=== PATIENT | female | born 1970 | race Caucasian/White ===

== ENCOUNTER 2016-06-15 15:02 | Outpatient (CLI) ==
[2013-12-30 18:40] VITALS: BMI 31.1
[2016-06-15 15:16] LABS: BASOPHILS # (AUTO) 0.1 K/uL (0-0.2); EOSINOPHILS # (AUTO) 0.7 K/ul (0.0-0.7); EOSINOPHILS % (AUTO) 6.3 % (0.0-7.0); HEMATOCRIT 45.6 % (37.0-47.0); HEMOGLOBIN 14.9 g/dl (12.0-16.0); IMMATURE GRANULOCYTE % (AUTO) 0.3 % (0.0-5.0); LYMPHOCYTES # (AUTO) 3.2 K/uL (0.60-3.4); LYMPHOCYTES % (AUTO) 31.2 (10.0-50.0); MEAN CORPUSCULAR HEMOGLOBIN 30.4 pg (27.0-31.0); MEAN CORPUSCULAR HGB CONC 32.7 (31.8-35.4); MEAN CORPUSCULAR VOLUME 93.1 fl (81.0-99.0); MONOCYTES # (AUTO) 0.8 K/uL (0.4-2.0); MONOCYTES % (AUTO) 8.1 (0-10); NEUTROPHILS # (AUTO) 5.5 K/ul (2.0-6.9); NEUTROPHILS % (AUTO) 53.1; PLATELET COUNT 281 10^3/uL (140-440); WHITE BLOOD COUNT 10.38 K/ul (4.6-10.2)
[2016-06-15 15:59] LABS: ALBUMIN 4.3 g/dL (3.4-5.0); ALBUMIN/GLOBULIN RATIO 1.34; ANION GAP 15.3; BILIRUBIN,TOTAL 0.37 mg/dL (0.00-1.20); BUN/CREATININE RATIO 14.08; CALCIUM 8.1 mg/dL (8.2-10.2); CHOL/HDL RATIO 3.3 (4.5-5.5); CREATININE 0.71 mg/dL (0.60-1.30); POTASSIUM 4.3 mmol/L (3.5-5.10); TOTAL PROTEIN 7.5 g/dL (6.4-8.2)
== END 2016-06-15 15:03 | disposition home or self-care (01) ==
LOC: LAB 15:02
PROVIDERS: ATTEND Nurse Practitioner Family
DX: M50.90 Cervical disc disorder, unspecified, unspecified cervical region (principal); M50.20 Other cervical disc displacement, unspecified cervical region; E78.1 Pure hyperglyceridemia; E78.5 Hyperlipidemia, unspecified
CPT/HCPCS: 36415; 80053; 80061; 84439; 84443; 85025

== ENCOUNTER 2016-08-29 08:30 | Emergency (ER) ==
[2016-08-29 08:40] VITALS: BP 125/89; TEMP 96.9; BMI 23.6
[2016-08-29] MEDS ORDERED: TORADOL IM STA (08:51)
--- NOTE | 2016-08-29 08:55 | ED.PDOC ---
General ED Provider: Dr. KELLY GARZA Chief Complaint: Back Pain Stated Complaint: Been hurting in the rt lower back, no injury. Time Seen by Physician: 08:53 Mode of Arrival: Walk-In Information Source: Patient Primary Care Provider: PAULA CERON Nursing and Triage Documentation Reviewed and Agree: Yes Musculoskeletal Complaint Exam - Back Pain Complaint/Exam Mechanism of Injury: Reports: No known trauma Symptoms Are: Still present Timing: Constant Episodes Lasting: Hours Initial Severity: Moderate Current Severity: Moderate Location: Reports: Discrete Character: Reports: Aching, Throbbing Aggravating: Reports: Movements, Lifting, Bending Alleviating: Reports: None Associated Signs and Symptoms: Denies: Swelling, Redness, Bruising, Fever, Weakness, Numbness, Tingling, Abdominal pain, Flank pain, Bladder incontinence, Bowel incontinence, Weight loss, Pain with weight bearing TAD Risk Factors: Reports: None AAA Risk Factors: Reports: None Cauda Equina Risk Factors: Reports: None Epidural Abcess Risk Factors: Reports: None Related Surgical History: Reports: None Focal Tenderness: Yes Paraspinal Muscle Tenderness: Yes Paraspinal Muscle Spasm: Yes Scoliosis: No Lordosis: No Kyphosis: No SLR Test: Left Positive Focal Weakness: Present: None Focal Sensory Loss: Present: None Gait: Present: Normal Differential Diagnoses: Arthritis, Strain Review of Systems - Review Of Systems Constitutional: Reports: Malaise, Weakness Eyes: Reports: No symptoms Ears, Nose, Mouth, Throat: Reports: No symptoms Respiratory: Reports: No symptoms Cardiac: Reports: No symptoms GI: Reports: No symptoms : Reports: No symptoms Musculoskeletal: Reports: Joint pain Skin: Reports: No symptoms Neurological: Reports: No symptoms Endocrine: Reports: No symptoms Hematologic/Lymphatic: Reports: No symptoms All Other Systems: Reviewed and Negative Past Medical History - Past Medical History Previously Healthy: Yes Endocrine: Reports: None Cardiovascular: Reports: None Respiratory: Reports: COPD Hematological: Reports: None Gastrointestinal: Reports: None Genitourinary: Reports: None Neuro/Psych: Reports: None Musculoskeletal: Reports: Back Pain Cancer: Reports: None Last Menstrual Period: post menopausal. - Surgical History General Surgical History: Reports: Tubal ligation, Appendectomy - Family History Family History: Reports: None - Social History Smoking Status: Current every day smoker, Light tobacco smoker Smoking Cessation Counseling Time: > 3 min - 10 min Hx Substance Use: No Alcohol Screening: Occasionally - Immunizations Tetanus Shot up to Date: No (unknown) Physical Exam - Physical Exam Appearance: Well-appearing Pain Distress: Moderate Eyes: JANES, EOMI, Conjunctiva clear ENT: Ears normal, Nose normal, Oropharynx normal Respiratory: Airway patent, Breath sounds clear, Breath sounds equal, Respirations nonlabored Cardiovascular: RRR, Pulses normal, No rub, No murmur GI/: Soft, Nontender, No masses, Bowel sounds normal, No Organomegaly Musculoskeletal: Normal strength, ROM intact, No edema, No calf tenderness Skin: Warm, Dry, Normal color Neurological: Sensation intact, Motor intact, Reflexes intact, Cranial nerves intact, Alert, Oriented Psychiatric: Affect appropriate, Mood appropriate Interpretation - Radiology Interpretation Radiology Interpretation By: ED Physician Radiology Results: Negative Critical Care Note - Critical Care Note Total Time (mins): 0 Course - Course Orders, Labs, Meds: Orders Category Date Time Status Ketorolac Tromethamine [Toradol] MEDS 08/29/16 08:51 Discontinued 60 mg IM ONCE STA LUMBAR SPINE, 2 OR 3 VIEWS Stat RADS 08/29/16 08:51 Completed Medications Discontinued Medications Generic Name Dose Route Start Last Admin Trade Name Freq PRN Reason Stop Dose Admin Ketorolac Tromethamine 60 mg 08/29/16 08:51 08/29/16 08:58 Toradol IM 08/29/16 08:52 60 mg ONCE STA Administration Vital Signs: Temp Pulse Resp BP Pulse Ox 08/29/16 08:30 96.9 F L 90 24 125/89 98 Departure - Departure Time of Disposition: 09:35 Disposition: HOME SELF-CARE Discharge Problem: Backache Sprain of low back Qualifiers: Encounter type: initial encounter Qualifier Code: (S33.9XXA) Sprain of unspecified parts of lumbar spine and pelvis, initial encounter Instructions: Arthritis (ED) Condition: Stable Pt referred to PMD for follow-up: Yes Additional Instructions: REST HOT PACK ADVISED TO QUITE SMOKING. inez+ vit d po bid Prescriptions: Cyclobenzaprine HCl [Flexeril] 5 mg PO BID #14 tablet Hydrocodone/Acetaminophen [Baldwin 5-325 Tablet] 1 tab PO TID PRN #12 tablet PRN Reason: PAIN Allergies/Adverse Reactions: Allergies Latex, Natural Rubber Adverse Reaction (Verified 08/29/16 08:40) Penicillins Adverse Reaction (Verified 08/29/16 08:40) Home Medications: Ambulatory Orders Cyclobenzaprine HCl [Flexeril] 5 mg PO BID #14 tablet 08/29/16 Hydrocodone/Acetaminophen [Baldwin 5-325 Tablet] 1 tab PO TID PRN #12 tablet 08/29 Disposition Discussed With: Patient
--- NOTE | 2016-08-29 09:29 | DI ---
EXAM: Views of the lumbar spine HISTORY: Right lower back pain TECHNIQUE: AP lateral, coned-down lateral views of the lumbar spine were obtained. FINDINGS: There is straightening of the lumbar spine. There is no evidence of acute compression fr acture. There is no pars defect. There is mild degenerative disc disease seen in the upper and mid lumbar spine. There is facet joint arthropathy seen at the L5-S1 level. IMPRESSION: No acute fractures are seen within the lumbar spine. Mild degenerative disc disease of the lumbar spine. Facet joint arthropathy seen at L5-S1.
== END 2016-08-29 09:41 | disposition home or self-care (01) ==
LOC: ED 08:30
DX: S33.9XXA Sprain of unspecified parts of lumbar spine and pelvis, initial encounter (principal); F17.210 Nicotine dependence, cigarettes, uncomplicated
CPT/HCPCS: 96372; 99282

== ENCOUNTER 2017-04-09 07:57 | Outpatient (CLI) | END 2017-04-09 07:58 | disposition short-term general hospital (02) | LOC: AMBL 07:57 | PROVIDERS: ATTEND Family Medicine | DX: R07.9 Chest pain, unspecified (principal); R06.02 Shortness of breath; R05 Cough; R06.2 Wheezing ==

== ENCOUNTER 2017-05-04 16:18 | Outpatient (CLI) | END 2017-05-04 16:19 | disposition home or self-care (01) | LOC: LAB 16:18 | PROVIDERS: ATTEND Nurse Practitioner Family | DX: E87.6 Hypokalemia (principal) | CPT/HCPCS: 36415; 84132 ==

== ENCOUNTER 2017-12-15 10:26 | Outpatient (CLI) | END 2017-12-15 10:27 | disposition home or self-care (01) | LOC: LAB 10:26 | PROVIDERS: ATTEND Nurse Practitioner Family | DX: G89.29 Other chronic pain (principal); E87.6 Hypokalemia; E55.9 Vitamin D deficiency, unspecified | CPT/HCPCS: 36415; 80053; 82306; 85025 ==

== ENCOUNTER 2017-12-20 08:02 | Outpatient (CLI) | END 2017-12-20 08:03 | disposition home or self-care (01) | LOC: LAB 08:02 | PROVIDERS: ATTEND Nurse Practitioner Family | DX: E83.51 Hypocalcemia (principal) | CPT/HCPCS: 36415; 82306; 83735; 83970; 87389 ==

== ENCOUNTER 2018-09-01 10:47 | Outpatient (CLI) | END 2018-09-01 10:48 | disposition home or self-care (01) | LOC: LAB 10:47 | PROVIDERS: ATTEND Nurse Practitioner Family | DX: J44.9 Chronic obstructive pulmonary disease, unspecified (principal); M19.90 Unspecified osteoarthritis, unspecified site; M51.36 Other intervertebral disc degeneration, lumbar region; Z72.0 Tobacco use | CPT/HCPCS: 36415; 80053; 80061; 84443; 85025 ==

== ENCOUNTER 2018-09-05 16:28 | Outpatient (CLI) | END 2018-09-05 16:29 | disposition home or self-care (01) | LOC: RHC-LAB 16:28 | PROVIDERS: ATTEND Nurse Practitioner Family | DX: M54.5 Low back pain (principal) | CPT/HCPCS: 81001 ==

== ENCOUNTER 2018-09-08 10:28 | Emergency (ER) ==
[2018-09-08 10:42] VITALS: BP 135/82; TEMP 98.1; BMI 26.6
--- NOTE | 2018-09-08 11:44 | DI ---
EXAM: Two views of the chest. History: Cough. Comparison: Chest radiograph 10/28/2014 Findings: Heart size is normal. No focal consolidation. No appreciable pleural fluid and no pneumo thorax. No acute osseous abnormalities. Impression: No acute cardiopulmonary process
--- NOTE | 2018-09-08 12:06 | CT ---
EXAM: CT ABDOMEN AND PELVIS HISTORY: Bilateral flank pain TECHNIQUE: CT abdomen and pelvis without intravenous contrast. Images were reconstructed using 3 mm section thickness. Reformations were prepared. COMPARISON: 10/25/2013 FINDINGS: Diagnostic limitations may exist without including contrast enhanced images. Kidneys reveal no nep hrolithiasis or hydronephrosis. There is no perinephric fat stranding. Ureters are clear and the ur inary bladder is unremarkable. No focal hepatic or splenic lesions. Gallbladder is absent. Normal pancreas. Normal right adrenal gland. There is a stable 16 mm left adrenal nodule with indeterminate attenuation values on this une nhanced exam. This size stability would suggest a benign etiology. Minimal atherosclerotic disease. Stomach is within normal limits. No appendix is seen. No right lower quadrant inflammation. Odalis l gas pattern is within limits. Uterus is unremarkable. There is no ascites or inflammatory infiltr ation of the abdominal fat. Ventral abdominal wall is intact. Bones reveal arthropathy of the lower spine and sacroiliac joints. Lung bases are clear. There is no pneumoperitoneum. IMPRESSION: 1. Within limits of this unenhanced exam, the kidneys, ureters and urinary bladder appear normal. 2. Stable small left adrenal nodule since 2013. 3. No clear etiology for the patient's symptoms.
[2018-09-08] MEDS ORDERED: CALCIUM GLUCONATE 10% 1,000 MG in SODIUM CHLORIDE 100 ML IV STA (12:28)
--- NOTE | 2018-09-08 12:32 | ED.PDOC ---
General ED Provider: Dr. CIARA ESPANA Chief Complaint: Dizziness Stated Complaint: pt was sent from clinic for hypocalcemia and mild dizziness no motor sensory deficits noted . THE PT HAS HISTORY OF LOW P.T.H INDUCED HYPOCALCEMIA IN THE PAST. CALCIUM LEVELS ON NOVEMBER OF 2017 6.7 AND 7.0 . SHE IS NOT TAKING DIURETICS. Time Seen by Physician: 10:30 Mode of Arrival: Walk-In Information Source: Patient Exam Limitations: No limitations Primary Care Provider: PAULA CERON Nursing and Triage Documentation Reviewed and Agree: Yes Does patient meet sepsis criteria?: No If yes, has appropriate treatment been initiated?: No System Inflammatory Response Syndrome: Not Applicable Sepsis Protocol: For patient's 13 years and over: Temp is 96.8 and below OR 101 and greater Pulse >90 BPM Resp >20/minute Acutely Altered Mental Status Are patient's symptoms suggestive of a new infection, such as: -Pneumonia -Skin, Soft Tissue -Endocarditis -UTI -Bone, Joint Infection -Implantable Device -Acute Abdominal Infection -Wound Infection -Meningitis -Blood Stream Catheter Infection -Unknown Miscellaneous Complaint Exam - Complex/Multi-System Complaint/Exam Onset/Duration: 5 days ago was noted to have low calcium SENT TO ED TODAY Symptoms Are: Still present Initial Severity: Mild Current Severity: Mild Location of Pain: no pain Pain Radiates to: NO Character: N/A Aggravating: N/A Alleviating: N/A Associated Signs and Symptoms: Denies: Decreased responsiveness, Confusion, Agitation, Dizziness, Weakness, Syncope, Headache, Short of air, Cough, Wheezing , Hemoptysis, Chest pain, Palpitations, Edema, Nausea, Vomiting, Diarrhea, Abdominal pain, Back pain, Dysuria, Hematemesis, Melena, Decreased oral intake, Fever, Diaphoresis, Immunocompromised, Anticoagulation Therapy, Recent medication changes, Indwelling general medical practitioner, Prior MRSA, Prior VRE, Recent trauma, Remote trauma Respiratory Distress: None JVD Present: No Tachypnea Present: No Stridor Present: No Abdominal Findings: Present: Normal findings Glascow Coma Scale (see protocol): 15 Meningeal Signs Positive: No Focal Weakness: Present: None Focal Sensory Loss: Present: None Gait: Normal Babinski Sign: Negative Right, Negative Left Skin Findings: Present: Normal findings Joint Swelling Present: No In-Dwelling Device Present: No Differential Diagnosis: Metabolic Abnormality Quality Indicators for Cardiac Chest Pain: EKG in 10min. Quality Indicators for AMI: EKG in 10min. Review of Systems - Review Of Systems Constitutional: Reports: No symptoms Eyes: Reports: No symptoms Ears, Nose, Mouth, Throat: Reports: No symptoms Respiratory: Reports: No symptoms Cardiac: Reports: No symptoms GI: Reports: No symptoms : Reports: No symptoms Musculoskeletal: Reports: No symptoms Skin: Reports: No symptoms Neurological: Reports: Other (LIGHT HEADED NO DEDICITS OFFERED ) Endocrine: Reports: No symptoms Hematologic/Lymphatic: Reports: No symptoms All Other Systems: Reviewed and Negative Past Medical History - Past Medical History Previously Healthy: Yes (history of LOW PTH HYPOCALCEMIA ) Endocrine: Reports: None Cardiovascular: Reports: None Respiratory: Reports: COPD Hematological: Reports: None Gastrointestinal: Reports: None Genitourinary: Reports: None Neuro/Psych: Reports: None Musculoskeletal: Reports: Back Pain Cancer: Reports: None Last Menstrual Period: does not get them anymore - Surgical History General Surgical History: Reports: Tubal ligation, Appendectomy - Family History Family History: Reports: None - Social History Smoking Status: Current every day smoker Hx Substance Use: Yes (used to) Alcohol Screening: Occasionally - Immunizations Tetanus Shot up to Date: Yes Physical Exam - Physical Exam Appearance: Well-appearing, No pain distress, Well-nourished Eyes: JANES, EOMI, Conjunctiva clear ENT: Ears normal, Nose normal, Oropharynx normal Respiratory: Airway patent, Breath sounds clear, Breath sounds equal, Respirations nonlabored Cardiovascular: RRR, Pulses normal, No rub, No murmur GI/: Soft, Nontender, No masses, Bowel sounds normal, No Organomegaly Musculoskeletal: Normal strength, ROM intact, No edema, No calf tenderness Skin: Warm, Dry, Normal color Neurological: Sensation intact, Motor intact, Reflexes intact, Cranial nerves intact, Alert, Oriented Psychiatric: Affect appropriate, Mood appropriate Interpretation - 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 Rate: Normal Rhythm: Sinus Ectopy: None - EKG Interpretation Rate: Normal Rhythm: Sinus (NORMAL SINUS WITH FIRST DEGREE BLOCK AND PAC) Ectopy: PACs [place]: NL ST Segment: Normal EKG Comparison: No significant changes Re-Evaluation - Re-Evaluation Time of Re-Evaluation: 12:33 Status: Unchanged Vital Signs Stable: Yes Pain Level: 0 Appearance: NAD Lungs: Clear Skin: Warm and Dry Neuro: Alert and Oriented X3 CV: RRR Additional Comments: NO PAIN Physician Notification - Case Discussed Physician Notified: VICK GREENE Time of Notification: 13:00 (STATED , TRANSFER TO HIGHER LEVEL OF CARE SINCE NO ENDOCRINE SERIVCE AVILABLE AT [facility].) Physician Notified: KEN GREENE Time of Notification: 14:15 (NO , ENDO CRINE AT [facility].) Critical Care Note - Critical Care Note Total Time (mins): 0 Course - Course Hematology/Chemistry: 09/08/18 11:02 09/08/18 11:02 Orders, Labs, Meds: Lab Review 09/08/18 09/08/18 09/08/18 11:02 11:02 11:03 WBC 6.96 RBC 4.33 Hgb 13.4 Hct 40.3 MCV 93.1 MCH 30.9 MCHC 33.3 RDW Coeff of Kristy 14.0 Plt Count 203 Immature Gran % (Auto) 0.4 Neut % (Auto) 53.0 Lymph % (Auto) 27.6 [place] % (Auto) 12.4 H Eos % (Auto) 5.7 Baso % (Auto) 0.9 Immature Gran # (Auto) 0.0 Neut # (Auto) 3.7 Lymph # (Auto) 1.9 [place] # (Auto) 0.9 Eos # (Auto) 0.4 Baso # (Auto) 0.1 Sodium 141.7 Potassium 3.83 Chloride 107.0 Carbon Dioxide 24.4 Anion Gap 14.13 BUN 11.2 Creatinine 0.74 Estimated GFR (MDRD) 84.00 BUN/Creatinine Ratio 15.13 Glucose 86.1 Lactic Acid Calcium 5.97 L Magnesium Total Bilirubin 0.30 AST 19.0 ALT 14.2 Alkaline Phosphatase 63.6 Total Protein 6.28 L Albumin 4.09 Globulin 2.19 Albumin/Globulin Ratio 1.86 Procalcitonin TSH 0.636 Free T4 1.09 Urine Color Urine Clarity Urine pH Ur Specific Gould Urine Protein Urine Glucose (UA) Urine Ketones Urine Blood Urine Nitrite Urine Bilirubin Urine Urobilinogen Ur Leukocyte Esterase Influ A Molecular Assay Influ B Molecular Assay 09/08/18 09/08/18 09/08/18 11:03 11:03 11:30 WBC RBC Hgb Hct MCV MCH MCHC RDW Coeff of Kristy Plt Count Immature Gran % (Auto) Neut % (Auto) Lymph % (Auto) [place] % (Auto) Eos % (Auto) Baso % (Auto) Immature Gran # (Auto) Neut # (Auto) Lymph # (Auto) [place] # (Auto) Eos # (Auto) Baso # (Auto) Sodium Potassium Chloride Carbon Dioxide Anion Gap BUN Creatinine Estimated GFR (MDRD) BUN/Creatinine Ratio Glucose Lactic Acid 2.14 H Calcium Magnesium 1.81 Total Bilirubin AST ALT Alkaline Phosphatase Total Protein Albumin Globulin Albumin/Globulin Ratio Procalcitonin < 0.05 TSH Free T4 Urine Color Urine Clarity Urine pH Ur Specific Gould Urine Protein Urine Glucose (UA) Urine Ketones Urine Blood Urine Nitrite Urine Bilirubin Urine Urobilinogen Ur Leukocyte Esterase Influ A Molecular Assay Influ B Molecular Assay 09/08/18 09/08/18 11:40 11:45 WBC RBC Hgb Hct MCV MCH MCHC RDW Coeff of Kristy Plt Count Immature Gran % (Auto) Neut % (Auto) Lymph % (Auto) [place] % (Auto) Eos % (Auto) Baso % (Auto) Immature Gran # (Auto) Neut # (Auto) Lymph # (Auto) [place] # (Auto) Eos # (Auto) Baso # (Auto) Sodium Potassium Chloride Carbon Dioxide Anion Gap BUN Creatinine Estimated GFR (MDRD) BUN/Creatinine Ratio Glucose Lactic Acid Calcium Magnesium Total Bilirubin AST ALT Alkaline Phosphatase Total Protein Albumin Globulin Albumin/Globulin Ratio Procalcitonin TSH Free T4 Urine Color Yellow Urine Clarity Clear Urine pH 6.0 Ur Specific Gould 1.020 Urine Protein Negative Urine Glucose (UA) Negative Urine Ketones Negative Urine Blood Negative Urine Nitrite Negative Urine Bilirubin Negative Urine Urobilinogen 0.2 Ur Leukocyte Esterase Negative Influ A Molecular Assay Negative by naat Influ B Molecular Assay Negative by naat Orders Category Date Time Status EKG-(ED ONLY) Stat CARDIO 09/08/18 11:03 Completed BLOOD CULTURE Stat LAB 09/08/18 11:03 Received CBC W/ AUTO DIFF Stat LAB 09/08/18 11:02 Completed COMPREHENSIVE METABOLIC PANEL Stat LAB 09/08/18 11:02 Completed FLU A/B MOLECULAR Stat LAB 09/08/18 11:40 Completed FREE T4 (FREE THYROXINE) Stat LAB 09/08/18 11:03 Completed LACTIC ACID Stat LAB 09/08/18 11:03 Completed MAGNESIUM Stat LAB 09/08/18 11:30 Completed MOLECULAR GROUP A STREP Stat LAB 09/08/18 11:40 Completed PROCALCITONIN Stat LAB 09/08/18 11:03 Completed THYROID STIMULATING HORMONE Stat LAB 09/08/18 11:02 Completed URINALYSIS C & S IF INDICATED Stat LAB 09/08/18 11:45 Completed Calcium Gluconate Inj [Calcium Gluconate 10%] MEDS 09/08/18 13:00 Discontinued 1,000 mg IVP ONCE STA CHEST, 2 VIEWS PA & LAT Stat RADS 09/08/18 11:[address] ABDOMEN/PELVIS WO CONTRAST Stat RADS 09/08/18 11:05 Completed Medications Discontinued Medications Generic Name Dose Route Start Last Admin Trade Name Abel PRN Reason Stop Dose Admin Calcium Gluconate 1,000 mg 09/08/18 13:00 09/08/18 13:10 Calcium Gluconate 10% IVP 09/08/18 13:01 1,000 mg ONCE STA Administration Vital Signs: Temp Pulse Resp BP Pulse Ox 09/08/18 10:28 98.1 F 100 H 24 135/82 98 Departure - Departure Time of Disposition: 14:47 (multiple [facility] the [facility] contacted no in house endo supa kruger , pt refused to be transfered to [facility] or [place] . risks dicussed pt fully understand LEFT AM PRESENT EM) Disposition: AMA Discharge Problem: Hypocalcemia, Prolonged QT interval Instructions: Hypocalcemia (ED) Condition: Good Pt referred to PMD for follow-up: Yes IPMP verified?: No Additional Instructions: Please call your Family Physician as soon as possible to schedule a follow-up appointment.your calcium level is VERY LOW. THIS CONDITION CAN LEAD TO HEART STOPS , . SEE YOUR M.D SOON POSSIBLE. YOU CAN RUN INTO SERIOUS MEDICAL PROBLEMS. IF YOU IGNORE THIS PROBLEM YOUR HEART MY STOP. DO NOT TAKE OVER COUNTER MEDS WITH THIS CONDITION. DO SO IS LIKE ADDING FUEL ON FIRE. Allergies/Adverse Reactions: Allergies Latex, Natural Rubber Adverse Reaction (Verified 09/08/18 10:50) Penicillins Adverse Reaction (Verified 09/08/18 10:50) Disposition Discussed With: Patient
[2018-09-08] MEDS ORDERED: CALCIUM GLUCONATE 10% IVP STA (13:00)
--- NOTE | 2018-09-11 11:49 | PN ---
DATE OF SERVICE: 09/09/18 SUBJECTIVE: I called the number Ms. Dior Santana which was listened as the number to call for Cheyanne Llanes. She did answer the phone and I asked for Ms. Dior Santana and she said it was her and I did ask her about the condition of Ms. Llanes and she doesn't know. I asked her if she is related to her and she told me that she is a girlfriend of her son. Later told me that the patient, Ms. Wilfredo Carter came home and was then brought to a [facility] and is in [place] at this time. She doesn't know which hospital. I had not seen her yesterday or today. NICHOLE
== END 2018-09-08 15:40 | disposition left against medical advice (07) ==
LOC: ED 10:28
DX: E83.51 Hypocalcemia (principal); I45.81 Long QT syndrome; R42 Dizziness and giddiness; F17.210 Nicotine dependence, cigarettes, uncomplicated
CPT/HCPCS: 36415; 80053; 81001; 83605; 83735; 84145; 84439; 84443; 85025; 87040; 87502; 87651; 93005; 93010; 96374; 99284

== ENCOUNTER 2019-01-19 13:57 | Emergency (ER) ==
[2019-01-19 14:04] VITALS: BP 123/79; TEMP 96; BMI 29.0
--- NOTE | 2019-01-19 15:05 | ED.PDOC ---
General ED Provider: Dr. AGNIESZKA BARNHART Chief Complaint: Shortness of Air Stated Complaint: Short of air 3 days; mowed lawn (push mower) and short of air since. Uses 2 MDIs at home - has been hospitalized in past with COPD - none recently. Time Seen by Physician: 15:01 Mode of Arrival: Walk-In Information Source: Patient Exam Limitations: No limitations Primary Care Provider: PAULA CERON Nursing and Triage Documentation Reviewed and Agree: Yes Does patient meet sepsis criteria?: No System Inflammatory Response Syndrome: Not Applicable Sepsis Protocol: For patient's 13 years and over: Temp is 96.8 and below OR 101 and greater Pulse >90 BPM Resp >20/minute Acutely Altered Mental Status Are patient's symptoms suggestive of a new infection, such as: -Pneumonia -Skin, Soft Tissue -Endocarditis -UTI -Bone, Joint Infection -Implantable Device -Acute Abdominal Infection -Wound Infection -Meningitis -Blood Stream Catheter Infection -Unknown Review of Systems - Review Of Systems Constitutional: Reports: Weakness Respiratory: Reports: Cough, Short of air, Wheezing Cardiac: Reports: No symptoms GI: Reports: No symptoms All Other Systems: Reviewed and Negative Past Medical History - Past Medical History Previously Healthy: Yes (history of LOW PTH HYPOCALCEMIA ) Endocrine: Reports: None Cardiovascular: Reports: None Respiratory: Reports: COPD Hematological: Reports: None Gastrointestinal: Reports: None Genitourinary: Reports: None Neuro/Psych: Reports: None Musculoskeletal: Reports: Back Pain Cancer: Reports: None Last Menstrual Period: 2007 - Surgical History General Surgical History: Reports: Tubal ligation, Appendectomy - Family History Family History: Reports: None - Social History Smoking Status: Current every day smoker Hx Substance Use: No Alcohol Screening: None - Immunizations Tetanus Shot up to Date: No (Unknown) Physical Exam - Physical Exam Appearance: Well-appearing Ill-appearing: None Pain Distress: None Eyes: JANES, Conjunctiva clear ENT: Oropharynx normal Neck: Supple Respiratory: Airway patent, Breath sounds equal, Wheezes (bilateral) GI/: Soft, Nontender Musculoskeletal: Normal strength, ROM intact, No edema Skin: Warm, Dry, Normal color Neurological: Sensation intact, Motor intact, Alert, Oriented Psychiatric: Affect appropriate, Mood appropriate Interpretation - Radiology Interpretation Radiology Interpretation By: ED Physician Radiology Results: Negative Exam Interpreted: Portable CXR Re-Evaluation - Re-Evaluation Time of Re-Evaluation: 15:36 Status: Improved (Post DuoNeb [place] - much improved BS minimal wheezing bilat) Critical Care Note - Critical Care Note Total Time (mins): 25 Course - Course Orders, Labs, Meds: Orders Category Date Time Status NEBULIZER TREATMENT Stat CARDIO 01/19/19 15:07 Completed NEBULIZER TREATMENT Stat CARDIO 01/19/19 15:39 Completed Albuterol Sulfate 0.083% Neb [Albuterol 0.083% Neb] MEDS 01/19/19 15:39 Discontinued 1 vial NEB ONCE STA Dexamethasone 4 mg/ml Inj [Decadron 4 mg/ml Sdv] MEDS 01/19/19 15:09 Discontinued 8 mg IM ONCE STA Ipratropium/Albuterol Neb [Duoneb] MEDS 01/19/19 15:07 Discontinued 1 vial NEB ONCE STA CHEST, 2 VIEWS PA & LAT Stat RADS 01/19/19 15:38 Completed Medications Discontinued Medications Generic Name Dose Route Start Last Admin Trade Name Freq PRN Reason Stop Dose Admin Albuterol Sulfate 1 vial 01/19/19 15:39 01/19/19 15:43 Albuterol 0.083% Neb NEB 01/19/19 15:40 1 vial ONCE STA Administration Albuterol/Ipratropium 1 vial 01/19/19 15:07 01/19/19 15:16 Duoneb NEB 01/19/19 15:08 1 vial ONCE STA Administration Dexamethasone Sodium Phosphate 8 mg 01/19/19 15:09 01/19/19 15:29 Decadron 4 Mg/Ml Sdv IM 01/19/19 15:10 8 mg ONCE STA Administration Vital Signs: Temp Pulse Resp BP Pulse Ox 01/19/19 13:59 96.0 F L 98 H 28 H 123/79 99 Departure - Departure Time of Disposition: 16:46 Disposition: HOME SELF-CARE Discharge Problem: COPD exacerbation Instructions: COPD (Chronic Obstructive Pulmonary Disease) (ED) Condition: Stable Pt referred to PMD for follow-up: Yes (Call for appointment) IPMP verified?: No (N/A) Additional Instructions: Follow up with primary care as needed; take your regular medications/ nebulizers. Take prednisone (prescription sent electronically to pharmacy) for 5 days Prescriptions: Prednisone 40 mg PO DAILYWM #10 tablet Allergies/Adverse Reactions: Allergies Latex, Natural Rubber Adverse Reaction (Verified 09/08/18 10:50) Penicillins Adverse Reaction (Verified 09/08/18 10:50) Home Medications: Ambulatory Orders Prednisone 40 mg PO DAILYWM #10 tablet 01/19/19
[2019-01-19] MEDS: DUONEB NEB STA (15:16)
[2019-01-19] MEDS: DECADRON 4 MG/ML SDV IM STA (15:29)
[2019-01-19] MEDS: ALBUTEROL 0.083% NEB NEB STA (15:43)
--- NOTE | 2019-01-19 16:10 | DI ---
EXAM: Chest two views HISTORY: Cough COMPARISON: 09/08/2018 TECHNIQUE: Two views of the chest were performed FINDINGS: The lungs are clear. There is no pleural effusion or pneumothorax. The heart is normal i n size. The mediastinal contour is normal. There are no acute abnormalities of the bones. IMPRESSION: No acute cardiopulmonary process.
== END 2019-01-19 16:54 | disposition home or self-care (01) ==
LOC: ED 13:57
DX: J44.1 Chronic obstructive pulmonary disease with (acute) exacerbation (principal); R06.02 Shortness of breath; F17.210 Nicotine dependence, cigarettes, uncomplicated
CPT/HCPCS: 94640; 96372; 99283